=== PATIENT | male | born 1940 | race Caucasian/White ===

== ENCOUNTER 2017-09-12 13:54 | Inpatient (IN) | payer MEDICARE, BC ==
[~2017-09-12] VITALS: Ht 170.2 cm; Wt 116.0 kg
[~2017-09-12 13:54] MED LIST: ADVAIR DISK1 INH; AMOXICILLIN875 MG OR; AVODART0.5 MG OR; AVODART0.5 MG PO; DILTIAZEM240 M1 PO; DIOVAN HCT320 MG/25 OR; FENOFIBRATE134 MG PO; FLUTICASONE50 MCG; FUROSEMIDE20 MG PO; HYZAAR1 TAB; KLOR-CON M1010 MEQ PO; POM IJ; POM PO; POM SC; ROBITUSSIN AC10 ML PO; ROPINIROLE1 MG PO; SAW PALMETTO160 M1 PO; SIMVASTATIN40 MG OR; SINGULAIR10 MG OR; SOTALOL AF160 MG PO; SPIRIVA IN; UROXATRAL10 MG PO; WARFARIN5 MG PO
--- NOTE | 2017-09-12 14:12 | NUR ---
PT AMBULATED TO WAITING ROOM WITH IN STABLE CONDTION, WITH STEADY GAIT, UNTIL A ROOM IS AVAILABLE FOR TREATMETN.
--- NOTE | 2017-09-12 14:52 | NUR ---
PT/ ADVISED WE ARE TRYING TO PREPARE A ROOM FOR HIM. PT DENIES NEW NEEDS/CONCERNS. CHARGE NURSE AWARE.
--- NOTE | 2017-09-12 15:25 | NUR ---
PATIENT CALLED, NOT IN LOBBY.
--- NOTE | 2017-09-12 15:25 | NUR ---
PT CALLED TO ER ROOM 10 BUT STATES PT IS IN THE BATHROOM. WILL CONTINUE TO MOVE PT TO ROOM.
--- NOTE | 2017-09-12 15:41 | NUR ---
PT AMBULATED TO ER ROOM 10 WITH . CHANGED INTO GOWN.
[2017-09-12 16:16] LABS: HEMATOCRIT 43.4 % (39.0-50.0); HEMOGLOBIN 14.1 g/dl (14.0-18.0); IMMATURE GRANULOCYTES 1.3 % (0.0-1.0); MEAN CORPUSCULAR HGB 29.6 pG CALC (26.0-32.0); MEAN CORPUSCULAR HGB CONC 32.5 g/L CALC (32.0-36.0); NEUT# 8.3 thou/uL (1.82-7.42); RED BLOOD COUNT 4.77 mill/uL (4.70-6.10); RED CELL DISTRI WIDTH 14.6 % (11.5-15.5)
[2017-09-12 16:27] LABS: INFLUENZA A NONE DETECTED (NONE DETECT); INFLUENZA B NONE DETECTED (NONE DETECT)
[2017-09-12] MEDS ORDERED: SPIRONOLACTONE25 MG PO (16:29)
[2017-09-12] MEDS ORDERED: LOPRESSOR 550 MG/TAB PO (16:30)
[2017-09-12] MEDS ORDERED: BLOOD THINNER (16:32)
[2017-09-12 16:34] LABS: ALBUMIN 3.8 g/dL (3.2-5.0); ALKALINE PHOSPHATASE 51 u/l (38-126); ANION GAP 18 (6-22 (CALC)); BILIRUBIN, TOTAL 1.2 mg/dL (0.0-1.4); BUN 21 mg/dL (8-23); BUN/CREATININE RATIO 18 (12-20 (CALC)); CARBON DIOXIDE 22 mmol/l (22-30); CHLORIDE 109 mmol/l (95-108); CREATININE 1.1 mg/dL (0.7-1.3); GFR > 60 ML/MIN (>=60 (CALC)); GFR FOR AFR.AMER. > 60 ML/MIN (>=60 (CALC)); POTASSIUM 4.7 mmol/l (3.5-5.1); SGOT/AST 36 u/l (19-48); SGPT/ALT 30 u/l (11-66); SODIUM 144 mmol/l (137-146); TOTAL PROTEIN 6.8 g/dL (6.3-8.2)
--- NOTE | 2017-09-12 16:59 | NUR ---
PTS RED AREA MARKED BY BLACK PERM MARKER.
--- NOTE | 2017-09-12 17:43 | NUR ---
PATIENT RESTING ON STRECHER WITH NON-PRODUCTIVE COUGH NOTED. IV ANTIBIOTICS INFUSING. AT BEDSIDE WILL CONTINUE TO MONITOR.
--- NOTE | 2017-09-12 17:59 | NUR ---
MD AT BEDSIDE TO DISCUSS RESULTS.
--- NOTE | 2017-09-12 18:28 | NUR ---
PATIENT ASSISTED TO CHAIR AND SET UP WITH DINNER TRAY. CALL LIGHT WITHIN REACH, ASKED TO CALL FOR ASSISTANCE.
--- NOTE | 2017-09-12 19:02 | NUR ---
REPORT GIVEN TO KYRA STOCK.
--- NOTE | 2017-09-12 19:10 | NUR ---
PATIENT TRANSPORTED TO [facility] VIA WHEELCHAIR. REPORT GIVEN TO KYRA STOCK. CARE RELINQUISHED AT THIS TIME.
--- NOTE | 2017-09-12 19:10 | NUR ---
PT ARRIVED TO THE FLOOR WITH ER STAFF. PT ASSISTED TO SCALE; VITAL SIGNS OBTAINED. PT ORIENTED TO ROOM AND CALL LIGHT SYSTEM. PT DENIES ANY PAIN OR DISCOMFORT. RESP EVEN AND UNLABORED. NO DISTRESS NOTED. ABD DISTENDED; SOFT. BOWEL SOUNDS ACTIVE. PT STATES BM TODAY. RIGHT LEG REDNESS; NO OPEN WOUNDS NOTED. +1 EDEMA NOTED BILAT. PEDAL PULSES PALPATED BILAT. IV LAC FLUSHED WITHOUT DIFFICULTY. PT ENCOURAGED TO CALL FOR ASSISTANCE. SAFETY PRECAUTIONS REINFORCED. CALL LIGHT WITHIN REACH. FREQUENT ROUNDS MADE.
[2017-09-13 00:15] VITALS: BP 107/70
--- NOTE | 2017-09-13 00:15 | NUR ---
PT OOB IN BEDSIDE CHAIR. RESP EVEN AND UNLABORED. PT DENIES ANY PAIN OR DISCOMFORT. CALL LIGHT WITHIN REACH.
--- NOTE | 2017-09-13 04:30 | NUR ---
PT OOB IN BEDSIDE CHAIR WATCHING TV, LEGS ELEVATED. RESP EVEN AND UNLABORED. NO DISTRESS NOTED. ASSESSMENT UNCHANGED. CALL LIGHT WITHIN REACH.
[2017-09-13 05:00] VITALS: BP 137/81
[2017-09-13 06:19] LABS: ANION GAP 15 (6-22 (CALC)); BUN 19 mg/dL (8-23); BUN/CREATININE RATIO 19 (12-20 (CALC)); CARBON DIOXIDE 20 mmol/l (22-30); CHLORIDE 111 mmol/l (95-108); GFR > 60 ML/MIN (>=60 (CALC)); GFR FOR AFR.AMER. > 60 ML/MIN (>=60 (CALC)); POTASSIUM 4.4 mmol/l (3.5-5.1); SODIUM 142 mmol/l (137-146)
[2017-09-13 06:26] LABS: HEMATOCRIT 39.9 % (39.0-50.0); MEAN CELL VOLUME 91.1 fL CALC (80.0-100.0); MEAN CORPUSCULAR HGB 29.7 pG CALC (26.0-32.0); MEAN CORPUSCULAR HGB CONC 32.6 g/L CALC (32.0-36.0); RED BLOOD COUNT 4.38 mill/uL (4.70-6.10); RED CELL DISTRI WIDTH 14.6 % (11.5-15.5)
--- NOTE | 2017-09-13 07:00 | NUR ---
SHIFT CHANGE REPORT FROM DEMETRIA STOCK AWAKE ALERT AND ORIENTED SITTING UP IN RECLINER, REPORTED HE HAD A RESTLESS NIGHT AND COMPLAINED DID NOT GET HIS MEDICATIONS. INFORMED MD WILL BE HERE THIS AM, REVIEW MEDS AND PLACE ORDERS, WILL CONTINUE TO [id number].
[2017-09-13 09:21] VITALS: BP 137/87
--- NOTE | 2017-09-13 13:24 | NUR ---
DR CHRISTIE ROUNDED, SPOUSE CALLED AND ASKED TO BRING HOME IN FOR EVALUATION, EXPECTED TO BE HERE SOON
[2017-09-13] MEDS ORDERED: FINASTERIDE5 MG PO (14:23)
[2017-09-13] MEDS ORDERED: ELIQUIS5 MG PO (14:25)
[2017-09-13] MEDS ORDERED: FLONASE AL50 MCG/ACT (14:29)
[2017-09-13] MEDS ORDERED: MULTI VIT PO (14:34)
[2017-09-13] MEDS ORDERED: MAXITROL0.1 % OU (14:37)
[2017-09-13 15:43] VITALS: BP 126/79
--- NOTE | 2017-09-13 15:48 | NUR ---
S: ROBERTO JACOBSEN is a 77 M who presents with right lower extremity cellulitis. He has a history of Arthritis and HTN. All medications in patient's chart were reviewed. O: VS: BP 126/79, P 79, RR 22,T 98.1 W 116 kg, HT 67 in, Scr= 1.0,CrCl= 57.8 ml/min A: Blood culture is pending. Throat culture is pending. P: Patient is on Zosyn 3.375 gm IV Q6H. Vancomycin ordered for pharmacy to dose. Start Vancomycin 1g IV Q12H. Vancomycin trough is drawn before the 4th dose on 09/14 at 21:30. Vancomycin goal trough is between 10-15 mcg/ml. Pharmacy will follow and or advise on antibiotics use as needed.
--- NOTE | 2017-09-13 16:00 | NUR ---
SPOUSE BROUGHT IN HOME MEDS, S[employer]IOR [employer] LABORATORY DIRECTOR REVIEWED AND WROTE ORDERS, ALL NEEDS ADDRESSED, CALL RODRÍGUEZ IN REACH.
[2017-09-13 19:00] VITALS: BP 155/84
--- NOTE | 2017-09-13 20:45 | NUR ---
PT SITTING IN RECLINER AT BEDSIDE WITH EXTREMITITES ELVATED. AT BEDIDE. ALERT AND ORIENTED X3. +4 PITTING EDEMA NOTED TO RLE EDUCATED ON PURPOSE TO LEAVE EXTREMITIES ELEVATED. ASSESSMENT COMPLETED, CALL LIGHT IN REACH,CONTINUE TO MONITOR.
--- NOTE | 2017-09-14 | NUR ---
PT LYING IN BED WITH CPAP FROM HOME, NO SIGNS OF DISTRESS NOTED, RESP EVEN AND UNLABORED. CALL LIGHT IN REACH,CONTINUE TO MONITOR.
--- NOTE | 2017-09-14 02:16 | NUR ---
LAMBERTO CONSTANTINO PT WEARING CPAP FROM HOME. VOICES NO NEEDS OR COMPLAINTS. CALL LIGHT IN REACH,CONTINUE TO MONITOR.
--- NOTE | 2017-09-14 04:09 | NUR ---
PT TAKING A SHOWER, NO SIGNS OF DISTRESS NOTED, RESP EVEN AND UNLABORED. CONTINUE TO MONITOR.
[2017-09-14 04:40] VITALS: BP 157/88
[2017-09-14 04:49] LABS: HEMATOCRIT 43.1 % (39.0-50.0); HEMOGLOBIN 14.2 g/dl (14.0-18.0); IMMATURE GRANULOCYTES 3.1 % (0.0-1.0); MEAN CELL VOLUME 90.2 fL CALC (80.0-100.0); MEAN CORPUSCULAR HGB 29.7 pG CALC (26.0-32.0); MEAN CORPUSCULAR HGB CONC 32.9 g/L CALC (32.0-36.0); NEUT# 6.47 thou/uL (1.82-7.42); RED BLOOD COUNT 4.78 mill/uL (4.70-6.10); RED CELL DISTRI WIDTH 14.1 % (11.5-15.5)
[2017-09-14 04:59] LABS: ANION GAP 18 (6-22 (CALC)); BUN 17 mg/dL (8-23); BUN/CREATININE RATIO 18 (12-20 (CALC)); CARBON DIOXIDE 18 mmol/l (22-30); CHLORIDE 111 mmol/l (95-108); GFR > 60 ML/MIN (>=60 (CALC)); GFR FOR AFR.AMER. > 60 ML/MIN (>=60 (CALC)); MAGNESIUM 2.2 mg/dL (1.6-2.3); POTASSIUM 4.6 mmol/l (3.5-5.1); SODIUM 143 mmol/l (137-146)
[2017-09-14 05:28] LABS: URINE BILIRUBIN - DIPSTICK NEGATIVE (NEGATIVE); URINE BLOOD DIPSTICK NEGATIVE (NEGATIVE); URINE COLOR YELLOW; URINE GLUCOSE - DIPSTICK NEGATIVE (NEGATIVE); URINE KETONE NEGATIVE (NEGATIVE); URINE LEUK ESTERASE NEGATIVE (NEGATIVE); URINE NITRITE - DIPSTICK NEGATIVE (Negative); URINE PH 5.5 (4.5-8.0); URINE PROTEIN - DIPSTICK NEGATIVE (NEG-TRACE)
[2017-09-14 05:29] LABS: URINE CLARITY CLEAR
--- NOTE | 2017-09-14 07:00 | NUR ---
RECEIVED BEDSIDE REPORT FROM WILL RAE. RESTING IN BED WITH EYES CLOSED, AWAKENS EASILY. RESPS EVEN AND UNLABORED ON ROOM AIR. DENIES PAIN OR DISCOMFORT. PLAN OF CARE DISCUSSED. SAFETY PRECAUTIONS REINFORCED. BED IN LOWEST POSITION WITH WHEELS LOCKED. CALL LIGHT WITHIN REACH. ENCOURAGED PT TO CALL FOR ANY NEEDS.
[2017-09-14 07:25] VITALS: BP 134/88
--- NOTE | 2017-09-14 10:50 | NUR ---
PT ASSESSMENT COMPLETE. PT ALERT, ORIENTED X3. SPEECH IS CLEAR. FACE SYMMETRICAL. PUPILS EQUAL, REACTIVE TO LIGHT. PT HAS STRONG UPPER AND LOWER EXTREMETIES. PT HAS STRONG APICAL, RADIAL PULSES. STRONG L PEDAL BUT WEAK R PEDAL PULSE. BRISK CAPILLARY REFILL. LUNG SOUNDS COURSE. RESPIRATIONS EVEN AND UNLABORED. O2 SAT 95% ON RA. SKIN WARM, INTACT. PITTING EDEMA +3 R LOWER LEG, RED AND INFLAMMED, WARM TO TOUCH. L LOWER LEG HAS SMALL AMOUNT OF EDEMA. PT HAS #22 GAUGE L AC, IV SITE HAS NO SWELLING OR REDNESS. CALL LIGHT WITHIN REACH. BED IS LOCKED AND LOWEST POSITION. CR X2. WILL CONTINUE TO MONITOR.
--- NOTE | 2017-09-14 13:40 | NUR ---
DR CHRISTIE IN WITH PT, NEW ORDERS RECEIVED.
--- NOTE | 2017-09-14 16:00 | NUR ---
SITTING IN BEDSIDE CHAIR, RESPS EVEN AND UNLABORED ON ROOM AIR. VOICES NO NEEDS. CALL LIGHT WITHIN REACH. WILL CONTINUE TO MONITOR.
[2017-09-14 16:14] VITALS: BP 151/85
--- NOTE | 2017-09-14 16:34 | NUR ---
Patient is doing better. little cough comapred to previous days. Denied any side effects pertaining to medications. c
[2017-09-14] MEDS ORDERED: LASIX40 MG PO (17:51)
[2017-09-14] MEDS ORDERED: DOXYCYCL HYC100 MG PO (17:51)
[2017-09-14] MEDS ORDERED: MEDDOSEPAK PO (17:51)
[2017-09-14] MEDS ORDERED: ALBUTEROL SUL0.083 % NEB (17:51)
[2017-09-14] MEDS ORDERED: ROBITUSSIN AC10 ML PO (17:51)
--- NOTE | 2017-09-14 18:15 | NUR ---
Discharge instructions given. Patient verbalizes understanding of same. Discharged in stable condition via Wheelchair to Home with spouse. All belongings sent with pt.
== END 2017-09-14 18:12 | disposition home or self-care (01) | DRG 603 ==
LOC: ED 13:54 → ED-I 17:43 → ED 18:16 → MS2 18:17
PROVIDERS: Emergency Medicine; Nurse Practitioner Family; ADMIT Internal Medicine; ATTEND Internal Medicine
DX: L03.115 Cellulitis of right lower limb (principal); I48.2 Chronic atrial fibrillation; J44.0 Chronic obstructive pulmonary disease with (acute) lower respiratory infection; G25.81 Restless legs syndrome; G47.00 Insomnia, unspecified; Z68.41 Body mass index [BMI] 40.0-44.9, adult; G47.30 Sleep apnea, unspecified; J20.9 Acute bronchitis, unspecified; I10 Essential (primary) hypertension; M19.90 Unspecified osteoarthritis, unspecified site; Z95.0 Presence of cardiac pacemaker; N40.0 Benign prostatic hyperplasia without lower urinary tract symptoms; Z95.3 Presence of xenogenic heart valve; Z87.891 Personal history of nicotine dependence; Z79.01 Long term (current) use of anticoagulants
CPT/HCPCS: G0378

== ENCOUNTER → 2018-10-17 | Outpatient (REF) | payer MEDICARE, BC ==
[~2018-10-17] MED LIST changes: +ALBUTEROL SUL0.083 % NEB; +BLOOD THINNER; +DOXYCYCL HYC100 MG PO; +ELIQUIS5 MG PO; +FINASTERIDE5 MG PO; +FLONASE AL50 MCG/ACT; +LASIX40 MG PO; +LOPRESSOR 550 MG/TAB PO; +MAXITROL0.1 % OU; +MEDDOSEPAK PO; +MULTI VIT PO; +SPIRONOLACTONE25 MG PO
[2018-10-17 16:03] LABS: HEMATOCRIT 44.4 % (39.0-50.0); HEMOGLOBIN 14.2 g/dl (14.0-18.0); IMMATURE GRANULOCYTES 1.9 % (0.0-5.0); MEAN CELL VOLUME 91.7 fL CALC (80.0-100.0); MEAN CORPUSCULAR HGB 29.3 pG CALC (26.0-32.0); NEUT# 3.05 thou/uL (1.82-7.42); RED BLOOD COUNT 4.84 mill/uL (4.70-6.10); RED CELL DISTRI WIDTH 15.6 % (11.5-15.5)
== END | disposition home or self-care (01) ==
LOC: LAB 15:26
PROVIDERS: ATTEND Nurse Practitioner Family
DX: R53.82 Chronic fatigue, unspecified (principal); Z79.899 Other long term (current) drug therapy

== ENCOUNTER 2019-06-14 12:10 | Emergency (ER) | payer MEDICARE, BC ==
[~2019-06-14] VITALS: Ht 170.2 cm; Wt 115.0 kg
[2019-06-14] MEDS ORDERED: SPIRIVA HANDIHALER IN (13:21)
[2019-06-14] MEDS ORDERED: SAW PALMETTO450 MG PO (13:22)
[2019-06-14] MEDS ORDERED: PROPAFENONE150 M1 PO (13:27)
[2019-06-14] MEDS ORDERED: KLOR-CON 1010 MEQ PO (13:29)
[2019-06-14] MEDS ORDERED: MULTI VIT PO (13:29)
[2019-06-14] MEDS ORDERED: FUROSEMIDE20 MG PO (13:33)
[2019-06-14 13:38] LABS: URINE BILIRUBIN - DIPSTICK NEGATIVE (NEGATIVE); URINE BLOOD DIPSTICK LARGE (NEGATIVE); URINE COLOR YELLOW; URINE GLUCOSE - DIPSTICK NEGATIVE (NEGATIVE); URINE KETONE NEGATIVE (NEGATIVE); URINE LEUK ESTERASE NEGATIVE (NEGATIVE); URINE NITRITE - DIPSTICK NEGATIVE (Negative); URINE PH 5.5 (4.5-8.0); URINE PROTEIN - DIPSTICK NEGATIVE (NEG-TRACE); URINE UROBILINOGEN - DIPSTICK 0.2 E.U./dL (0.2)
[2019-06-14 13:40] LABS: HEMATOCRIT 42.9 % (39.0-50.0); HEMOGLOBIN 13.3 g/dl (14.0-18.0); IMMATURE GRANULOCYTES 2.4 % (0.0-5.0); MEAN CELL VOLUME 95.8 fL CALC (80.0-100.0); MEAN CORPUSCULAR HGB 29.7 pG CALC (26.0-32.0); NEUT# 3.73 thou/uL (1.82-7.42); RED BLOOD COUNT 4.48 mill/uL (4.70-6.10); RED CELL DISTRI WIDTH 15.3 % (11.5-15.5)
[2019-06-14 13:58] LABS: ALBUMIN 3.7 g/dL (3.2-5.0); ALKALINE PHOSPHATASE 38 u/l (38-126); ANION GAP 11 (6-22 (CALC)); BILIRUBIN, TOTAL 1.1 mg/dL (0.0-1.4); BUN 28 mg/dL (8-23); BUN/CREATININE RATIO 23 (12-20 (CALC)); CARBON DIOXIDE 21 mmol/l (22-30); CHLORIDE 110 mmol/l (95-108); CREATININE 1.2 mg/dL (0.7-1.3); GFR 59 ML/MIN (>=60 (CALC)); GFR FOR AFR.AMER. > 60 ML/MIN (>=60 (CALC)); LIPASE 111 u/l (23-300); POTASSIUM 4.6 mmol/l (3.5-5.1); SGOT/AST 36 u/l (19-48); SODIUM 138 mmol/l (137-146); TOTAL PROTEIN 7.3 g/dL (6.3-8.2)
[2019-06-14] MEDS ORDERED: TOPAMAX25 MG PO (14:04)
[2019-06-14] MEDS ORDERED: AVODART0.5 MG PO (14:05)
[2019-06-14] MEDS ORDERED: FLONASE AL50 MCG/ACT NAB (14:06)
[2019-06-14] MEDS ORDERED: SINGULAIR10 MG PO (14:09)
[2019-06-14 16:20] VITALS: BP 131/73
== END 2019-06-14 16:20 | disposition home or self-care (01) ==
LOC: ED 12:10
PROVIDERS: Family Medicine
DX: R31.9 Hematuria, unspecified (principal); N39.0 Urinary tract infection, site not specified; I10 Essential (primary) hypertension; Z95.0 Presence of cardiac pacemaker; Z79.899 Other long term (current) drug therapy